=== PATIENT | female | born 1975 | race Caucasian/White ===

== ENCOUNTER 2017-01-20 18:05 | Emergency (ER) | payer BC ==
--- NOTE | 2017-01-20 20:53 | RAD ---
Exam: Three-view lumbar spine COMPARISON: None INDICATION: Low back pain after moving a boat one day ago. FINDINGS: AP, lateral and AP angled views of the lumbar spine were obtained. There are 5 nonrib-bearing lumbar vertebra. Sagittal alignment is within normal limits. Overall vertebral body height disc spaces maintained. Sacroiliac joints are within normal limits and symmetric. Sacral foramen are intact. Surgical clips are noted within the right upper quadrant. IMPRESSION: Negative radiographic evaluation of the lumbar spine.
== END 2017-01-20 21:26 | disposition home or self-care (01) ==
LOC: ED 18:05
DX: S39.012A Strain of muscle, fascia and tendon of lower back, initial encounter (principal); X50.0XXA Overexertion from strenuous movement or load, initial encounter; Y92.9 Unspecified place or not applicable